=== PATIENT | male | born 1955 | race Caucasian/White ===

== ENCOUNTER 2018-10-27 20:17 | Emergency (ER) | payer OTHER ==
[~2018-10-27] VITALS: Ht 198.1 cm; Wt 112.0 kg
[2018-10-27 20:30] VITALS: BP 163/95
--- NOTE | 2018-10-27 20:32 | NUR ---
63 yo males comes to ed for c/o sore throat x 3 days. pt has productive cough, intermittent. brown yellow sputum. pt denies fever, night sweats. clear even bilateral breath sounds. abd soft non distended. call light @ bedside. jessica locked in lowest position. will update ermd. hx: DM, HLD, HTN med hx: simvastatin, metformin NKA
[2018-10-27] MEDS ORDERED: ACETAMINOPHEN 325 MG TAB PO ONE (21:50)
[2018-10-27] MEDS ORDERED: DEXAMETHASONE 10 MG/ML VIAL IM ONE (21:50)
--- NOTE | 2018-10-27 22:27 | NUR ---
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
[2018-10-27 23:28] VITALS: BP 118/62
--- NOTE | 2018-10-27 23:28 | NUR ---
Patient discharged with v/s stable. Written and verbal after care instructions given and explained. Patient verbalized understanding. Ambulatory with steady gait. All questions addressed prior to discharge. Advised to follow up with PMD.
== END 2018-10-27 23:28 | disposition home or self-care (01) ==
LOC: MED 20:17
DX: J02.9 Acute pharyngitis, unspecified (principal); R51 Headache; M79.605 Pain in left leg; I10 Essential (primary) hypertension; E11.9 Type 2 diabetes mellitus without complications; E78.5 Hyperlipidemia, unspecified; Z88.8 Allergy status to other drugs, medicaments and biological substances; Z91.013 Allergy to seafood; Z91.048 Other nonmedicinal substance allergy status
CPT/HCPCS: 87081; 96372; 99283; J1100

== ENCOUNTER 2019-02-07 02:06 | Emergency (ER) | payer OTHER ==
[~2019-02-07] VITALS: Ht 198.1 cm; Wt 111.1 kg
[2019-02-07 02:15] VITALS: BP 174/90
[2019-02-07] MEDS ORDERED: HYDROcodone/APAP 5/325 MG 1 TAB TAB PO ONE (03:50)
[2019-02-07] MEDS ORDERED: KETOROLAC 30 MG/ML VIAL IM ONE (04:50)
[2019-02-07] MEDS ORDERED: DIAZEPAM 5 MG TAB PO ONE (04:55)
[2019-02-07 06:50] VITALS: BP 140/62
== END 2019-02-07 06:50 | disposition home or self-care (01) ==
LOC: MED 02:06
DX: M54.2 Cervicalgia (principal); E11.9 Type 2 diabetes mellitus without complications; I10 Essential (primary) hypertension; Z88.2 Allergy status to sulfonamides
CPT/HCPCS: 72125; 96372; 99284; J1885